=== PATIENT | female | born 1985 | race African-American/Black ===

== ENCOUNTER 2025-02-06 08:10 | Outpatient (CLI) | payer OTHER | END 2025-02-06 08:11 | disposition home or self-care (01) | LOC: CSHMAMMO 08:10 | PROVIDERS: ATTEND Family Medicine | DX: N64.9 Disorder of breast, unspecified (principal); Z21 Asymptomatic human immunodeficiency virus [HIV] infection status; E66.9 Obesity, unspecified; F79 Unspecified intellectual disabilities; A53.9 Syphilis, unspecified; R79.9 Abnormal finding of blood chemistry, unspecified; L73.2 Hidradenitis suppurativa; H52.00 Hypermetropia, unspecified eye; Z71.9 Counseling, unspecified | CPT/HCPCS: 77066; G0279 ==